=== PATIENT | male | born 1950 | race Caucasian/White ===

== ENCOUNTER 2021-01-07 09:55 | Emergency (ER) | payer MEDICAID, SELFPAY ==
[~2021-01-07] VITALS: Ht 165.1 cm; Wt 86.2 kg
[~2021-01-07 09:55] MED LIST: AMLO5TAB PO; DOCU-299 PO; FURO-572 PO; LISI40TA12 PO; METO25TA PO; PANT40EC56 PO; TAMS0.4C96 PO; WARF-83 PO
[2021-01-07 10:18] VITALS: BP 160/95
--- NOTE | 2021-01-07 10:26 | NUR ---
PT TO WAIT IN LOBBY
[2021-01-07 14:32] LABS: BASOPHILS # (AUTO) 0.1 K/uL (0.00-0.22); BASOPHILS % (AUTO) 0.8 % (0.0-2.0); EOSINOPHILS # (AUTO) 0.2 K/uL (0-0.4); EOSINOPHILS % (AUTO) 3.4 % (0.0-4.0); HEMATOCRIT 37.6 % (36-52); HEMOGLOBIN 12.1 g/dL (12.0-18.0); LYMPHOCYTES # (AUTO) 1.3 K/uL (2.0-11.5); LYMPHOCYTES % (AUTO) 19.6 % (20.5-51.1); MEAN CORPUSCULAR HEMOGLOBIN 27 pg (27-31); MEAN CORPUSCULAR HGB CONC 32 g/dL (33-37); MEAN CORPUSCULAR VOLUME 84.9 fL (80-94); MONOCYTES # (AUTO) 0.7 K/uL (0.8-1.0); MONOCYTES % (AUTO) 9.7 % (1.7-9.3); NEUTROPHILS # (AUTO) 4.5 K/uL (1.8-7.7); NEUTROPHILS % (AUTO) 66.5 % (42.2-75.2); PLATELET COUNT (AUTO) 237 K/uL (140-450); RED BLOOD CELL COUNT(AUTO) 4.43 MIL/uL (4.20-6.10); WHITE BLOOD COUNT (AUTO) 6.7 K/uL (4.8-10.8)
[2021-01-07 15:05] LABS: PROTHROMBIN TIME 13.8 secs (10.8-13.4)
[2021-01-07 15:08] LABS: ANION GAP 9.1 (8-16); CARBON DIOXIDE 28.7 mmol/L (21-32); POTASSIUM 3.8 mmol/L (3.5-5.1)
[2021-01-07 17:19] VITALS: BP 158/90
--- NOTE | 2021-01-07 17:19 | NUR ---
Patient discharged with v/s stable. Written and verbal after care instructions given and explained. Patient verbalized understanding. Ambulatory with steady gait. All questions addressed prior to discharge. Advised to follow up with PMD.
== END 2021-01-07 17:19 | disposition home or self-care (01) ==
LOC: MED 09:55
DX: R60.0 Localized edema (principal); M79.604 Pain in right leg; M79.605 Pain in left leg; I10 Essential (primary) hypertension; Z79.01 Long term (current) use of anticoagulants
CPT/HCPCS: 36415; 80048; 85025; 85610; 93971; 99284; Q0092

== ENCOUNTER 2021-02-23 15:44 | Inpatient (IN) | payer MEDICAID, SELFPAY ==
[~2021-02-23] VITALS: Ht 170.2 cm; Wt 75.9 kg
--- NOTE | 2021-02-23 15:50 | NUR ---
Pt ambulated to restroom prior to triage assessment, states he needs to go
[2021-02-23 15:58] VITALS: BP 123/87
--- NOTE | 2021-02-23 16:03 | NUR ---
Pt to wait in lobby. Ambulated with walker, with family in lobby at this time.
--- NOTE | 2021-02-23 16:12 | NUR ---
Pt ambulated to bed 08 with walker
[2021-02-23 16:48] LABS: APPEARANCE,URINE CLEAR (CLEAR); BILIRUBIN,URINE NEGATIVE (NEGATIVE); BLOOD, URINE TRACE-I (NEGATIVE); COLOR,URINE YELLOW (YELLOW); LEUKOCYTE ESTERASE ,URINE NEGATIVE (NEGATIVE); NITRITE, URINE NEGATIVE (NEGATIVE); UGLUCOSE NEGATIVE (NEGATIVE)
[2021-02-23 16:50] LABS: BASOPHILS % (AUTO) 0.3 % (0.0-2.0); EOSINOPHILS # (AUTO) 0.6 K/uL (0-0.4); EOSINOPHILS % (AUTO) 3.9 % (0.0-4.0); HEMATOCRIT 37.3 % (36-52); HEMOGLOBIN 11.9 g/dL (12.0-18.0); LYMPHOCYTES # (AUTO) 0.6 K/uL (2.0-11.5); LYMPHOCYTES % (AUTO) 3.8 % (20.5-51.1); MEAN CORPUSCULAR HEMOGLOBIN 27 pg (27-31); MEAN CORPUSCULAR HGB CONC 32 g/dL (33-37); NEUTROPHILS # (AUTO) 14.1 K/uL (1.8-7.7); PLATELET COUNT (AUTO) 223 K/uL (140-450); RED BLOOD CELL COUNT(AUTO) 4.45 MIL/uL (4.20-6.10); RED CELL DISTRIBUTION WIDTH 18.6 % (11.6-13.7); WHITE BLOOD COUNT (AUTO) 16.3 K/uL (4.8-10.8)
--- NOTE | 2021-02-23 16:57 | NUR ---
70 Y/O M, PATIENT PRESENTS TO ED WITH ABD PAIN SINCE LAST NIGHT, STATES THAT HE HAS BEEN HAVING BLOOD IN THE STOOL FOR 2 YEARS. PT STATES BLOOD COMES ANS GOES. DENIES N/V/D; SKIN IS PINK/WARM/DRY; AAOX4 WITH EVEN AND STEADY GAIT; LUNGS CLEAR BL; HR EVEN AND REGULAR; PT DENIES ANY FEVER, CP, SOB, OR COUGH AT THIS TIME; PATIENT STATES PAIN OF 9/10 AT THIS TIME; PATIENT POSITIONED FOR COMFORT; HOB ELEVATED; BEDRAILS UP X2; BED DOWN. ER MD MADE AWARE OF PT STATUS. PMH: HTN NKA MED: UNABLE TO TELL ME NAME OF MEDS
[2021-02-23 17:03] LABS: WBC,URINE 0-5 /HPF (0-5)
[2021-02-23 17:05] LABS: ALBUMIN 3.3 g/dL (3.4-5.0); ANION GAP 11.7 (8-16); CARBON DIOXIDE 26.4 mmol/L (21-32); POTASSIUM 4.1 mmol/L (3.5-5.1); TOTAL BILIRUBIN 0.9 mg/dL (0.0-1.0)
[2021-02-23] MEDS ORDERED: PHYTONADIONE 10 MG/ML AMP SUBQ ONE (19:05)
[2021-02-23] MEDS ORDERED: PANTOPRAZOLE 80 MG in NACL 0.9% 100 ML IVP SCH (19:15)
[2021-02-23] MEDS ORDERED: PANTOPRAZOLE 40 MG INJ VIAL ONE ×2 (19:33→19:34)
[2021-02-23] MEDS ORDERED: BACITRACIN OINT 500 UNITS/GM PKT TP ONE (19:35)
--- NOTE | 2021-02-23 19:40 | NUR ---
PT LAYING IN BED SUPINE LOCKED IN LOWEST POSITION W X2 SIDERAILS UP FOR PT SAFETY. PT REPORTS ONGOING RECTAL BLEED, DENIES PAIN, DIZZYNESS, N/V. VSS ON MONITOR.
--- NOTE | 2021-02-23 20:14 | NUR ---
PROVIDED PT W PERNIAL CARE. PER PT TO CUT OFF UNDERWEAR AND THROW AWAY D/T BLOOD STAINS ON IT. PT PROVIDED W CLEAN DIAPER AND ASSISTED TO REPOSITION FOR COMFORT.
--- NOTE | 2021-02-23 20:31 | NUR ---
Pt report given to LAKSHMI THORPE . Transfer of care at this time.
--- NOTE | 2021-02-23 20:33 | NUR ---
PT ALSO REPORTS TAKING MEDICATION FROM [place] NUTRILITE UNKNOWN DOSE, AND GLUCOSE HEALTH UNKNOWN DOSE.
--- NOTE | 2021-02-23 21:25 | NUR ---
Patient will be admitted to care of . Admited to TELEMETRY. Will go to [id number]. Belongings list completed. Report to LAKSHMI PAINTER.
--- NOTE | 2021-02-23 21:25 | NUR ---
REPORT OBTAINED FROM ER NURSE ARCENIO AND THIS NURSE ASSUMED CARE. TELEMETRY BOX ON BUT LEAD WRONG. REARRANGE TELE LEAD. IV PROTONIX INFUSING AT 10 ML/HR. MOANING FROM PAININ LEFT LOWER ABD. NO MEDS TAKEN.
[2021-02-24] VITALS: BP 145/92
--- NOTE | 2021-02-24 | NUR ---
NURSE NOTES VSS. AFEB. NO C/O PAIN OR DISCOMFORT. ON TELE AFEB.
[2021-02-24 05:15] VITALS: BP 142/94
--- NOTE | 2021-02-24 07:30 | NUR ---
NURSE REPORT REPORT GIVEN DAY SHIFT NURSE BRANDEE AND THIS NURSE ASSUMED CARE OF PATIENT. IV PROTONIX INFUSING AT 10 ML/HR. VOIS IN URINAL.
--- NOTE | 2021-02-24 07:58 | NUR ---
RECEIVED REPORT FROM POST DOCTORAL RESEARCHER FOR CONTINUITY OF CARE. PATIENT ALERT AWAKE ORIENTED X4, NOT IN ACUTE DISTRESS NOTED. WITH IV PROTONIX @ 10 ML/HR AND INFUSING WELL. 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 C/O OF ABDOMINAL PAIN, TOLERABLE. NPO OBSERVED. BED IN LOW POSITION. CALL LIGHT WITHIN REACH. WILL CONTINUE TO MONITOR.
[2021-02-24 08:00] VITALS: BP 155/88
[2021-02-24] MEDS ORDERED: ACETAMINOPHEN 325 MG TAB PO PRN (08:40)
[2021-02-24] MEDS ORDERED: POTASSIUM CHLORIDE 10 MEQ TABER PO PRN (08:40)
[2021-02-24] MEDS ORDERED: DOCUSATE SODIUM 100 MG GELCAP PO PRN ×2 (08:40)
[2021-02-24] MEDS ORDERED: NACL 0.9% 1,000 ML IV SCH (08:40)
[2021-02-24] MEDS ORDERED: MORPHINE SULFATE 2 MG/ML SYR IVP PRN (08:40)
[2021-02-24] MEDS ORDERED: ONDANSETRON 4 MG/2 ML VIAL IM/IVP PRN (08:40)
[2021-02-24] MEDS ORDERED: ZOLPIDEM 5 MG TAB PO PRN (08:40)
[2021-02-24] MEDS ORDERED: LORazepam 2 MG/ML VIAL IM/IVP PRN (08:40)
[2021-02-24] MEDS ORDERED: HYDROcodone/APAP 5/325 MG 1 TAB TAB PO PRN (08:40)
[2021-02-24] MEDS ORDERED: MAG SULF 2000 MG/WATER PREMIX 50 ML IV PRN (08:40)
[2021-02-24] MEDS ORDERED: PANTOPRAZOLE 80 MG in NACL 0.9% 100 ML IV SCH (08:59)
[2021-02-24] MEDS ORDERED: PANTOPRAZOLE 40 MG TABEC PO SCH (09:00)
--- NOTE | 2021-02-24 09:13 | NUR ---
PATIENT HAS BEEN SCREENED AND CATEGORIZED MODERATE NUTRITION RISK. PATIENT WILL BE SEEN WITHIN 3-5 DAYS OF ADMISSION. 02/26/21 02/28/[address]
[2021-02-24] MEDS: TAMSULOSIN 0.4 MG CAP PO SCH (10:48)
[2021-02-24] MEDS: lisinopriL 20 MG TAB PO SCH (10:48)
[2021-02-24] MEDS: METOPROLOL 25 MG TAB PO SCH ×2 (10:49→20:18)
[2021-02-24] MEDS: FUROSEMIDE 20 MG TAB PO SCH (10:49)
[2021-02-24] MEDS: amLODIPine 5 MG TAB PO SCH (10:49)
[2021-02-24 11:00] LABS: ANION GAP 12.2 (8-16); CARBON DIOXIDE 27.1 mmol/L (21-32); CREATININE 1.1 mg/dL (0.6-1.3); POTASSIUM 3.3 mmol/L (3.5-5.1)
[2021-02-24 11:13] LABS: CHOL/HDL RATIO 2.7 (1-4.5); MAGNESIUM 2.2 mg/dL (1.8-2.4); PHOSPHORUS 3.2 mg/dL (2.5-4.9); THYROID STIMULATING HORMONE 1.33 uIU/mL (0.34-3.74)
[2021-02-24 11:16] LABS: BASOPHILS % (AUTO) 0.1 % (0.0-2.0); EOSINOPHILS # (AUTO) 0.1 K/uL (0-0.4); EOSINOPHILS % (AUTO) 0.5 % (0.0-4.0); HEMATOCRIT 42.7 % (36-52); HEMOGLOBIN 13.6 g/dL (12.0-18.0); LYMPHOCYTES # (AUTO) 2.1 K/uL (2.0-11.5); LYMPHOCYTES % (AUTO) 11.8 % (20.5-51.1); MEAN CORPUSCULAR HEMOGLOBIN 27 pg (27-31); MEAN CORPUSCULAR HGB CONC 32 g/dL (33-37); MEAN CORPUSCULAR VOLUME 85.2 fL (80-94); MONOCYTES # (AUTO) 1.3 K/uL (0.8-1.0); MONOCYTES % (AUTO) 7.2 % (1.7-9.3); NEUTROPHILS # (AUTO) 14.3 K/uL (1.8-7.7); NEUTROPHILS % (AUTO) 80.4 % (42.2-75.2); PLATELET COUNT (AUTO) 258 K/uL (140-450); RED BLOOD CELL COUNT(AUTO) 5.02 MIL/uL (4.20-6.10); RED CELL DISTRIBUTION WIDTH 19.2 % (11.6-13.7); WHITE BLOOD COUNT (AUTO) 17.8 K/uL (4.8-10.8)
[2021-02-24 11:19] LABS: PROTHROMBIN TIME 42.4 secs (10.8-13.4)
[2021-02-24 12:00] VITALS: BP 106/74
--- NOTE | 2021-02-24 15:40 | NUR ---
K DUR GIVEN FOR POTASSIUM 3.3. HAD BM TO HARD STOOL AND SEND TO LAB. STOOL OB POSITIVE. DR. SALCEDO HERE AND ROUNDS WITH THE PATIENT. AWARE OF POSITIVE STOOL OB. WILL CONTINUE TO MONITOR.
[2021-02-24 16:00] VITALS: BP 95/57
[2021-02-24] MEDS ORDERED: MAGNESIUM CITRATE 300 ML BTL PO SCH (16:08)
[2021-02-24] MEDS ORDERED: bisacodyL 10 MG SUPP RC SCH (16:08)
[2021-02-24] MEDS: LACTULOSE 20 GM/30 ML UDC PO SCH ×2 (17:10→20:15)
[2021-02-24] MEDS: SENNA 8.6 MG TAB PO SCH (17:11)
--- NOTE | 2021-02-24 19:35 | NUR ---
RECEIVED REPORT FROM DAY SHIFT RN; PT AAAOX4 FOLLOWING COMMANDS, AMB @ BEDSIDE WITH WALKER. DENIES CP/SOB. AFIB ON MONITOR. ABD SOFT NON DISTENDED. LOOSE STOOL NOTED. PROTONIX DRIP RUNNING INTO R AC PIV. NO S/S OF DISTRESS NOTED. BLEEDING PRECAUTIONS IN PLACE. BED LOCKED IN LOWEST POSITION. WILL CONTINUE TO OBSERVE.
[2021-02-24 20:00] VITALS: BP 121/58
[2021-02-25] VITALS: BP 107/59
--- NOTE | 2021-02-25 03:21 | NUR ---
PT HAS EYES CLOSED; VSS. WILL CONTINUE TO OBSERVE.
[2021-02-25 04:00] VITALS: BP 105/62
--- NOTE | 2021-02-25 05:00 | NUR ---
X1 LARGE BM NOTED. BATH GIVEN. LINEN CHANGED.
[2021-02-25 07:35] LABS: ANION GAP 9.8 (8-16); CARBON DIOXIDE 29.2 mmol/L (21-32); CREATININE 1.2 mg/dL (0.6-1.3)
--- NOTE | 2021-02-25 07:36 | NUR ---
REPORT GIVEN TO DAY SHIFT FOR CONTINUITY OF CARE.
--- NOTE | 2021-02-25 07:37 | NUR ---
RECEIVED REPORT FROM GENERAL ACCOUNTANT RN FOR CONTINUITY OF CARE. PATIENT IN BED SLEEPING. RESPIRATIONS ARE EVEN AND UNLABORED, NO SIGNS OF DISTRESS NOTED. CALL LIGHT WITHIN REACH. ALL SAFETY MEASURES IN PLACE. WILL CONTINUE TO MONITOR.
[2021-02-25 07:52] LABS: MAGNESIUM 2.8 mg/dL (1.8-2.4)
[2021-02-25 07:54] LABS: BASOPHILS % (AUTO) 0.1 % (0.0-2.0); EOSINOPHILS # (AUTO) 0.2 K/uL (0-0.4); EOSINOPHILS % (AUTO) 1.9 % (0.0-4.0); HEMATOCRIT 34.6 % (36-52); HEMOGLOBIN 11.2 g/dL (12.0-18.0); LYMPHOCYTES # (AUTO) 1.6 K/uL (2.0-11.5); LYMPHOCYTES % (AUTO) 12.5 % (20.5-51.1); MEAN CORPUSCULAR HEMOGLOBIN 28 pg (27-31); MEAN CORPUSCULAR HGB CONC 32 g/dL (33-37); MEAN CORPUSCULAR VOLUME 85.4 fL (80-94); MONOCYTES # (AUTO) 0.8 K/uL (0.8-1.0); MONOCYTES % (AUTO) 6.5 % (1.7-9.3); NEUTROPHILS # (AUTO) 9.8 K/uL (1.8-7.7); PLATELET COUNT (AUTO) 194 K/uL (140-450); RED BLOOD CELL COUNT(AUTO) 4.05 MIL/uL (4.20-6.10); RED CELL DISTRIBUTION WIDTH 19.5 % (11.6-13.7); WHITE BLOOD COUNT (AUTO) 12.4 K/uL (4.8-10.8)
[2021-02-25 08:00] VITALS: BP 117/79
[2021-02-25] MEDS: amLODIPine 5 MG TAB PO SCH (09:00)
[2021-02-25] MEDS: lisinopriL 20 MG TAB PO SCH (09:00)
--- NOTE | 2021-02-25 09:00 | NUR ---
ADMINISTERED ALL SCHEDULED MEDICATIONS. PATIENT TOLERATED WELL. PATIENT STATES AN UNDERSTANDING OF ALL MEDICATIONS BEING ADMINISTERED. CALL LIGHT WITHIN REACH. ALL SAFETY MEASURES IN PLACE. WILL CONTINUE TO MONITOR.
[2021-02-25] MEDS: LACTULOSE 20 GM/30 ML UDC PO SCH ×4 (09:45→21:00)
[2021-02-25] MEDS: METOPROLOL 25 MG TAB PO SCH ×2 (09:46→21:00)
[2021-02-25] MEDS: TAMSULOSIN 0.4 MG CAP PO SCH (09:46)
[2021-02-25] MEDS: SENNA 8.6 MG TAB PO SCH ×3 (09:46→17:32)
[2021-02-25] MEDS: FUROSEMIDE 20 MG TAB PO SCH (09:47)
[2021-02-25 09:48] LABS: PROTHROMBIN TIME 25.2 secs (10.8-13.4)
--- NOTE | 2021-02-25 11:15 | NUR ---
DID ROUNDS ON PATIENT. PATIENT IN BED WATCHING TV AT THIS TIME. RESPIRATIONS EVEN AND UNLABORED. NO SIGNS OF DISTRESS NOTED. NO COMPLAINTS OF PAIN AT THIS TIME. WILL CONTINUE TO MONITOR. CALL LIGHT WITHIN REACH. ALL SAFETY MEASURES IN PLACE.
[2021-02-25 12:00] VITALS: BP 104/81
--- NOTE | 2021-02-25 13:06 | NUR ---
ADMINISTERED SCHEDULED MEDICATIONS. PATIENT TOLERATED WELL. EDUCATED PATIENT ON MEDICATIONS ADMINISTERED AND SIDE EFFECTS. PATIENT STATED AN UNDERSTANDING OF INFORMATION PROVIDED. WILL CONTINUE TO MONITOR. CALL LIGHT WITHIN REACH. ALL SAFETY MEASURES IN PLACE.
[2021-02-25 16:00] VITALS: BP 108/64
--- NOTE | 2021-02-25 16:12 | NUR ---
DC PLANNING: CM MET WITH THE PATIENT AT BEDSIDE WITH DAWIT YATES ACTING A CORRESPONDENCE TRANSCRIBER. THE PATIENT LIVES IN A HOUSE WITH A COUPLE AND THEIR DISABLED DAUGHTER AND HAS BEEN WITH THEM FOR 15 YEARS. HE IS UNSURE OF THE ADDRESS, STATES ONE OF HIS ROOMATES IS [place], PHONE [place] [phone]. HE IS ABLE TO AMBULATE USING A FWW WITH A SEAT OR CANE AND IS INDEPENDENT WITH ADL'S. HE GOES TO [facility] HE STATES THAT IT'S HARD TO GET AN APPOINTMENT THERE. HIS FRIENDS OR SIBLINGS GIVE HIM RIDES TO THE CLINIC OR TO RUN [place], AND STATES THAT THEY WILL GIVE HIM A RIDE HOME WHEN HE'S CLINICALLY STABLE FOR DISCHARGE. CM WILL FOLLOW FOR NEEDS.
--- NOTE | 2021-02-25 16:13 | NUR ---
AT BEDSIDE WITH CASE MANAGEMENT TO DISCUSS POC WITH PATIENT. PATIENT VERBALIZED UNDERSTANDING.
--- NOTE | 2021-02-25 17:25 | NUR ---
DID ROUNDS ON PATIENT. PATIENT IS IN BED, TALKING ON THE PHONE. NO SIGNS OF DISTRESS NOTED. NO COMPLAINTS OF PAIN. CALL LIGHT WITHIN REACH. ALL SAFETY MEASURES IN PLACE. WILL CONTINUE TO MONITOR.
--- NOTE | 2021-02-25 19:28 | NUR ---
ENDORSED PATIENT TO JUNIOR TECHNICAL WRITER NURSE FOR CONTINUITY OF CARE. PATIENT IS STABLE.
[2021-02-26 07:10] LABS: BASOPHILS % (AUTO) 0.1 % (0.0-2.0); EOSINOPHILS # (AUTO) 0.1 K/uL (0-0.4); HEMATOCRIT 33.8 % (36-52); HEMOGLOBIN 10.8 g/dL (12.0-18.0); LYMPHOCYTES # (AUTO) 0.9 K/uL (2.0-11.5); LYMPHOCYTES % (AUTO) 6.8 % (20.5-51.1); MEAN CORPUSCULAR HEMOGLOBIN 27 pg (27-31); MEAN CORPUSCULAR HGB CONC 32 g/dL (33-37); MEAN CORPUSCULAR VOLUME 85.6 fL (80-94); MONOCYTES # (AUTO) 0.7 K/uL (0.8-1.0); MONOCYTES % (AUTO) 5.3 % (1.7-9.3); NEUTROPHILS # (AUTO) 12.1 K/uL (1.8-7.7); NEUTROPHILS % (AUTO) 86.8 % (42.2-75.2); PLATELET COUNT (AUTO) 182 K/uL (140-450); RED BLOOD CELL COUNT(AUTO) 3.95 MIL/uL (4.20-6.10); RED CELL DISTRIBUTION WIDTH 19.2 % (11.6-13.7); WHITE BLOOD COUNT (AUTO) 13.9 K/uL (4.8-10.8)
[2021-02-26 07:16] LABS: ANION GAP 10.2 (8-16); CARBON DIOXIDE 26.4 mmol/L (21-32); CREATININE 1.1 mg/dL (0.6-1.3); POTASSIUM 3.6 mmol/L (3.5-5.1)
[2021-02-26 07:44] LABS: MAGNESIUM 2.3 mg/dL (1.8-2.4); PHOSPHORUS 2.9 mg/dL (2.5-4.9)
[2021-02-26 08:00] VITALS: BP 105/67
[2021-02-26 09:11] LABS: PROTHROMBIN TIME 15.2 secs (10.8-13.4)
[2021-02-26] MEDS ORDERED: [UNRECOGNIZED DRUG - CODE] PO ×2 (10:16→10:17)
[2021-02-26] MEDS ORDERED: LACT10SO86 PO ×2 (10:16→10:17)
[2021-02-26] MEDS: LACTULOSE 20 GM/30 ML UDC PO SCH ×4 (11:23→18:12)
[2021-02-26] MEDS: TAMSULOSIN 0.4 MG CAP PO SCH (11:24)
[2021-02-26] MEDS: SENNA 8.6 MG TAB PO SCH ×4 (11:24→18:12)
[2021-02-26] MEDS: FUROSEMIDE 20 MG TAB PO SCH (11:24)
[2021-02-26] MEDS: amLODIPine 5 MG TAB PO SCH (11:25)
[2021-02-26] MEDS: METOPROLOL 25 MG TAB PO SCH (11:25)
[2021-02-26] MEDS: lisinopriL 20 MG TAB PO SCH (11:25)
[2021-02-26 12:00] VITALS: BP 106/69
[2021-02-26] MEDS ORDERED: SULF-58 PO (15:46)
[2021-02-26 16:00] VITALS: BP 95/63
--- NOTE | 2021-02-26 16:20 | NUR ---
Patient has low blood pressure and was given an order from Physician to infuse a bolus of ns then after blood pressure is stable to discharge.
[2021-02-26] MEDS ORDERED: NACL 0.9% 500 ML IV SCH (16:25)
[2021-02-26 16:52] VITALS: BP 95/63
--- NOTE | 2021-02-26 19:50 | NUR ---
DISCHARGED PATIENT TO HOME PICKED UP BY FAMILY MEMBER VIA PRIVATE CAR IN STABLE CONDITION. TOOK ALL HIS BELONGINGS WITH HIM.
== END 2021-02-26 19:50 | disposition home or self-care (01) | DRG 253 ==
LOC: MED 15:44 → MTU 19:17
DX: K92.2 Gastrointestinal hemorrhage, unspecified (principal); N17.0 Acute kidney failure with tubular necrosis; E44.1 Mild protein-calorie malnutrition; I50.9 Heart failure, unspecified; I11.0 Hypertensive heart disease with heart failure; E83.51 Hypocalcemia; D64.9 Anemia, unspecified; D72.829 Elevated white blood cell count, unspecified; F43.9 Reaction to severe stress, unspecified; N40.0 Benign prostatic hyperplasia without lower urinary tract symptoms; K40.90 Unilateral inguinal hernia, without obstruction or gangrene, not specified as recurrent; K44.9 Diaphragmatic hernia without obstruction or gangrene; I48.91 Unspecified atrial fibrillation; Z20.822 Contact with and (suspected) exposure to COVID-19; T45.515A Adverse effect of anticoagulants, initial encounter; Z79.01 Long term (current) use of anticoagulants; Z79.899 Other long term (current) drug therapy; Y92.89 Other specified places as the place of occurrence of the external cause
CPT/HCPCS: 36415; 80048; 80053; 81001; 82272; 83036; 83605; 83690; 83735; 83880; 84100; 84134; 84436; 84443; 85025; 85610; 85730; 86886; 86900; 86901; 87040; 87081; 96365; 96372; 97163-GP; 97530; 99285; C9113; J3430